=== PATIENT | female | born 1990 | race Caucasian/White ===

== ENCOUNTER → 2016-06-14 20:42 | Outpatient (CLI) | payer SELFPAY ==
[2014-10-26 14:23] VITALS: BMI 32.4
[~2016-06-14 20:42] MED LIST: FERREX 150 PLUS1 CAP; IBUPROFEN600 MG PO; MULTIVIT; PERCOCET 5-3251 TAB PO; PRENATAL COMPLE1 TAB
[2016-06-14 21:35] LABS: APPEARANCE CLEAR (CLEAR); BILIRUBIN NEGATIVE (NEGATIVE); COLOR YELLOW (YELLOW); GLUCOSE NEGATIVE (NEGATIVE); KETONE NEGATIVE (NEGATIVE); LEUKOCYTE ESTERASE NEGATIVE (NEGATIVE); NITRITE NEGATIVE (NEGATIVE); PROTEIN NEGATIVE (NEGATIVE); SPECIFIC GRAVITY 1.015 (1.005-1.020); UROBILINOGEN NORMAL (NORMAL)
[2016-06-14 21:44] LABS: UDS - AMPHET NEGATIVE QUAL (NEGATIVE); UDS - BARB NEGATIVE QUAL (NEGATIVE); UDS - BENZO NEGATIVE QUAL (NEGATIVE); UDS - COCAINE NEGATIVE QUAL (NEGATIVE); UDS - METH NEGATIVE QUAL (NEGATIVE); UDS - OPIATE NEGATIVE QUAL (NEGATIVE); UDS - PCP NEGATIVE QUAL (NEGATIVE); UDS - THC NEGATIVE QUAL (NEGATIVE)
== END | disposition home or self-care (01) ==
LOC: D.ER 20:42 → D.LDO 20:42 → EDSTATUS 20:49
PROVIDERS: Obstetrics & Gynecology
DX: Z34.80 Encounter for supervision of other normal pregnancy, unspecified trimester (principal); R10.30 Lower abdominal pain, unspecified

== ENCOUNTER 2016-08-03 22:25 | Inpatient (IN) | payer MEDICAID ==
[~2016-08-03] VITALS: Ht 160 cm; Wt 72.6 kg
[2016-08-03 23:06] LABS: APPEARANCE CLEAR (CLEAR); BILIRUBIN NEGATIVE (NEGATIVE); COLOR YELLOW (YELLOW); GLUCOSE NEGATIVE (NEGATIVE); KETONE NEGATIVE (NEGATIVE); LEUKOCYTE ESTERASE NEGATIVE (NEGATIVE); NITRITE NEGATIVE (NEGATIVE); PROTEIN NEGATIVE (NEGATIVE); SPECIFIC GRAVITY 1.015 (1.005-1.020); UROBILINOGEN NORMAL (NORMAL)
[2016-08-04 00:56] LABS: UDS - AMPHET NEGATIVE QUAL (NEGATIVE); UDS - BARB NEGATIVE QUAL (NEGATIVE); UDS - BENZO NEGATIVE QUAL (NEGATIVE); UDS - COCAINE NEGATIVE QUAL (NEGATIVE); UDS - METH NEGATIVE QUAL (NEGATIVE); UDS - OPIATE NEGATIVE QUAL (NEGATIVE); UDS - PCP NEGATIVE QUAL (NEGATIVE); UDS - THC NEGATIVE QUAL (NEGATIVE)
[2016-08-04] MEDS ORDERED: PRENATAL COMPLE1 TAB PO (01:02)
[2016-08-04 01:03] VITALS: BP 112/73; Ht 160 cm; Wt 72.6 kg
[2016-08-04 01:08] LABS: HEMATOCRIT 30.5 % (36.0-48.0); HEMOGLOBIN 9.9 g/dL (12-16); MCH 28.6 pg (26.0-34.0); MCHC 32.5 g/dL (31.0-37.0); MCV 88.2 fL (80.0-100.0); MEAN PLATELET VOLUME 11.1 fL (7.4-10.4); RBC 3.46 10x6/uL (4.00-5.40); RDW 13.4 % (11.5-14.5); WBC 6.8 10x3/uL (4.8-10.8)
[2016-08-04 20:06] VITALS: BP 126/70
[2016-08-05 06:41] LABS: HEMATOCRIT 27.8 % (36.0-48.0); HEMOGLOBIN 8.9 g/dL (12-16); MCH 28.6 pg (26.0-34.0); MCV 89.4 fL (80.0-100.0); MEAN PLATELET VOLUME 11.1 fL (7.4-10.4); RBC 3.11 10x6/uL (4.00-5.40); RDW 13.6 % (11.5-14.5); WBC 6.7 10x3/uL (4.8-10.8)
--- NOTE | 2016-08-05 07:21 | OP ---
PATIENT NAME: PENELOPE BARRY MEDICAL RECORD: [id number] :91 LOCATION:[facility] ADMISSION DATE:08/04/16 SURGEON: DANIELLE MONTANA MD DATE OF OPERATION: 08/04/2016 Delivery Note Spontaneous vaginal delivery of male infant weighing 8 pounds 3 ounces, 9 and 9 Apgars, epidural anesthesia. Second-degree midline episiotomy repaired using 2-0 chromic suture. Spontaneous delivery of intact-appearing placenta. ESTIMATED BLOOD LOSS: 400 cc. COMPLICATIONS OF DELIVERY: None. TRANSINT:[id number] Voice Confirmation ID: [id number] DOCUMENT ID: [id number] DANIELLE MONTANA MD at 0721 CC: [id number] DICTATION DATE: 08/04/16 0954 GLASS WOOL BLANKET MACHINE FEEDER: 08/04/16 1054 ADM IN [place] [id number] [place] [address]
[2016-08-05 07:30] VITALS: BP 112/75
[2016-08-05 08:35] LABS: HIV 1 & 2- RAPID SCREEN NEGATIVE (NEGATIVE)
[2016-08-05] MEDS ORDERED: MOTRIN600 MG PO (11:20)
[2016-08-06 12:17] LABS: HEPATITIS C ANTIBODY <0.1 (0.0-0.9)
[2016-08-07 16:13] LABS: HGB SOLUBILITY (SICKLE SCREEN) Negative (Negative)
== END 2016-08-05 13:00 | disposition home or self-care (01) | DRG 775 ==
LOC: D.LDO 22:25 → D.LD 22:25 → D.LDO 08-04 00:33 → D.LD 08-04 00:34
PROVIDERS: ADMIT Obstetrics & Gynecology
PROC: 10E0XZZ Delivery of Products of Conception, External Approach (ICD-10-PCS; principal; 2016-08-04)
PROC: 0W8NXZZ Division of Female Perineum, External Approach (ICD-10-PCS; 2016-08-04)
DX: O80 Encounter for full-term uncomplicated delivery (principal); Z3A.39 39 weeks gestation of pregnancy; Z37.0 Single live birth; Z87.891 Personal history of nicotine dependence

== ENCOUNTER 2017-08-06 17:40 | Outpatient (CLI) | payer MEDICAID ==
[2016-08-04 01:03] VITALS: BMI 28.4
[~2017-08-06 17:40] MED LIST changes: +MOTRIN600 MG PO; +PRENATAL COMPLE1 TAB PO
[2017-08-06 18:12] LABS: APPEARANCE CLEAR (CLEAR); BILIRUBIN NEGATIVE (NEGATIVE); COLOR YELLOW (YELLOW); GLUCOSE NEGATIVE (NEGATIVE); KETONE NEGATIVE (NEGATIVE); NITRITE NEGATIVE (NEGATIVE); PROTEIN NEGATIVE (NEGATIVE); SPECIFIC GRAVITY 1.015 (1.005-1.020); UROBILINOGEN NORMAL (NORMAL)
[2017-08-06 18:26] LABS: UDS - AMPHET NEGATIVE QUAL (NEGATIVE); UDS - BARB NEGATIVE QUAL (NEGATIVE); UDS - BENZO NEGATIVE QUAL (NEGATIVE); UDS - COCAINE NEGATIVE QUAL (NEGATIVE); UDS - OPIATE NEGATIVE QUAL (NEGATIVE); UDS - PCP NEGATIVE QUAL (NEGATIVE); UDS - THC NEGATIVE QUAL (NEGATIVE)
== END 2017-08-06 21:20 | disposition home or self-care (01) ==
LOC: D.LDO 17:40
PROVIDERS: Obstetrics & Gynecology
DX: O26.899 Other specified pregnancy related conditions, unspecified trimester (principal); Z3A.00 Weeks of gestation of pregnancy not specified; M54.5 Low back pain

== ENCOUNTER → 2017-08-09 11:12 | Outpatient (CLI) | payer MEDICAID ==
[2016-08-04 01:03] VITALS: BMI 28.4
== END | disposition home or self-care (01) ==
LOC: D.LDO 11:12
DX: O26.899 Other specified pregnancy related conditions, unspecified trimester (principal); Z3A.00 Weeks of gestation of pregnancy not specified

== ENCOUNTER 2017-08-19 23:45 | Inpatient (IN) | payer MEDICAID ==
[~2017-08-19] VITALS: Ht 160 cm; Wt 83.7 kg
--- NOTE | ~2017-08-19 | OP ---
PATIENT NAME: PENELOPE BARRY MEDICAL RECORD: [id number] :91 LOCATION:[facility] ADMISSION DATE:08/19/17 SURGEON: BRENDON ACEVEDO MD DATE OF OPERATION: 08/20/2017 PREDELIVERY DIAGNOSIS: at 39 weeks' gestation. POSTDELIVERY DIAGNOSIS: at 39 weeks' gestation. PROCEDURE: Induction of labor with vaginal delivery. ATTENDING: Brendon Acevedo MD ANESTHETIC: Continuous lumbar epidural. FINDINGS: Viable male , vertex presentation, ALISON, weight 8 pounds 4 ounces, Apgars 7 and 9, first-degree vaginal laceration, and a perineal body laceration. The mucosal laceration is closed with 4-0 chromic and the perineal laceration is closed with a subcuticular stitch using 3-0 Vicryl. The vaginal mucosal tear is to the right of the urethra and a catheter was passed easily into the urethral meatus and the close terminates 1-1/2 cm lateral to the urethra. Placenta is spontaneous and intact. ESTIMATED BLOOD LOSS: 300 cc. DISPOSITION: Mother and infant recovered in the room. TRANSINT:[id number] Voice Confirmation ID: [id number] DOCUMENT ID: [id number] BRENDON ACEVEDO MD at 1631 CC: [id number] DICTATION DATE: 08/20/17922 HEALTHCARE PROJECT MANAGER: 08/20/17 1130 ADM IN [place] [id number] [place] [address]
--- NOTE | ~2017-08-19 | DS ---
PATIENT:PENELOPE BARRY :91 MEDICAL RECORD: [id number] DISCHARGE SUMMARY ADMISSION DATE: 08/19/17 DISCHARGE DATE: 08/21/17 DATE OF ADMISSION: 08/19/2017 DATE OF DISCHARGE: 08/21/2017 ADMISSION DIAGNOSIS: at term with favorable cervix. DISCHARGE DIAGNOSIS: Mother delivered at term. PROCEDURE: Induction of labor with vaginal delivery. ATTENDING PHYSICIAN: Pilar Mcintosh MD HISTORY OF PRESENT ILLNESS: See the H&P in the chart. SUMMARY OF HOSPITALIZATION: The patient was admitted to the hospital and underwent induction of labor without incident. The patient went into active labor after a single dose of Cytotec. The patient was delivered and has done well . The patient did have perineal body laceration and a vaginal laceration. Sitz baths t.i.d. have been recommended. DISCHARGE MEDICATIONS: Will include ibuprofen. Standard precautions have been reviewed. TRANSINT:[id number] Voice Confirmation ID: [id number] DOCUMENT ID: [id number] PILAR MCINTOSH MD at 0804 CC: [id number] DICTATION DATE: 08/21/17 1630 DORMITORY COUNSELOR: 08/22/17 0326 DIS IN 08/21/17 [facility] [address] [place] [address]
[2017-08-20 00:09] VITALS: BP 117/66; Ht 160 cm; Wt 83.7 kg
[2017-08-20 00:37] LABS: HEMATOCRIT 27.9 % (36.0-48.0); HEMOGLOBIN 9.4 g/dL (12-16); MCH 30.8 pg (26.0-34.0); MCHC 33.7 g/dL (31.0-37.0); MCV 91.5 fL (80.0-100.0); MEAN PLATELET VOLUME 10.6 fL (7.4-10.4); RBC 3.05 10x6/uL (4.00-5.40); RDW 14.1 % (11.5-14.5); WBC 6.8 10x3/uL (4.8-10.8)
[2017-08-20 00:45] LABS: APPEARANCE CLEAR (CLEAR); BILIRUBIN NEGATIVE (NEGATIVE); COLOR YELLOW (YELLOW); GLUCOSE NEGATIVE (NEGATIVE); KETONE NEGATIVE (NEGATIVE); NITRITE NEGATIVE (NEGATIVE); PROTEIN NEGATIVE (NEGATIVE); SPECIFIC GRAVITY 1.015 (1.005-1.020); UROBILINOGEN NORMAL (NORMAL)
[2017-08-20 00:46] LABS: BACTERIA FEW /hpf (NONE SEEN); EPITHELIAL CELLS 0-5 /hpf (0-5); RED CELLS - URINE 0-5 /hpf (0-5)
[2017-08-20 00:58] LABS: UDS - AMPHET NEGATIVE QUAL (NEGATIVE); UDS - BARB NEGATIVE QUAL (NEGATIVE); UDS - BENZO NEGATIVE QUAL (NEGATIVE); UDS - COCAINE NEGATIVE QUAL (NEGATIVE); UDS - OPIATE NEGATIVE QUAL (NEGATIVE); UDS - PCP NEGATIVE QUAL (NEGATIVE); UDS - THC NEGATIVE QUAL (NEGATIVE)
[2017-08-20 16:00] VITALS: BP 120/74
[2017-08-20 19:15] VITALS: BP 113/72
[2017-08-21 07:30] LABS: RAPID PLASMA REAGIN Non Reactive (Non Reactive)
[2017-08-21 08:30] VITALS: BP 128/72
== END 2017-08-21 17:15 | disposition home or self-care (01) | DRG 775 ==
LOC: D.LD 23:45
PROVIDERS: Obstetrics & Gynecology
PROC: 10E0XZZ Delivery of Products of Conception, External Approach (ICD-10-PCS; principal; 2017-08-20)
PROC: 0HQ9XZZ Repair Perineum Skin, External Approach (ICD-10-PCS; 2017-08-20)
PROC: 3E033VJ Introduction of Other Hormone into Peripheral Vein, Percutaneous Approach (ICD-10-PCS; 2017-08-20)
DX: O99.344 Other mental disorders complicating childbirth (principal); F41.8 Other specified anxiety disorders; Z3A.39 39 weeks gestation of pregnancy; Z37.0 Single live birth; O70.0 First degree perineal laceration during delivery; O71.82 Other specified trauma to perineum and vulva; Z87.891 Personal history of nicotine dependence

== ENCOUNTER 2018-03-30 10:55 | Day surgery (SDC) | payer MEDICAID ==
[2018-03-27 10:36] LABS: BASOPHILS 0.3 % (0-2); EOSINOPHILS 0 % (0-7); HEMATOCRIT 39.8 % (36.0-48.0); HEMOGLOBIN 13.5 g/dL (12-16); IMMATURE GRANULOCYTES 0.3 % (0-5); LYMPHOCYTES 42.1 % (15-50); MCH 30.8 pg (26.0-34.0); MCHC 33.9 g/dL (31.0-37.0); MCV 90.9 fL (80.0-100.0); MEAN PLATELET VOLUME 9.7 fL (7.4-10.4); MONOCYTES 12.3 % (2-11); PLATELET COUNT 194 10x3/uL (130-400); RBC 4.38 10x6/uL (4.00-5.40); RDW 13.5 % (11.5-14.5); WBC 3.7 10x3/uL (4.8-10.8)
[~2018-03-30] VITALS: Ht 160 cm; Wt 88.5 kg
[2018-03-30 11:31] VITALS: BP 104/67; Ht 160 cm; Wt 88.5 kg
[2018-03-30 11:51] LABS: HCG URINE NEGATIVE (NEGATIVE)
--- NOTE | 2018-03-30 17:44 | NUR ---
CARE ASSUMED FROM SYED CHANG RN
--- NOTE | 2018-03-30 18:51 | NUR ---
DC INSTRUCTIONS GIVEN TO PT/FAMILY. STATE UNDERSTANDING. PT VOIDED. DC'D IV CATH FULLY INTACT.
--- NOTE | 2018-03-30 19:09 | NUR ---
PT LEFT UNIT VIA WC AT 191
--- NOTE | 2018-04-24 07:46 | OP ---
PATIENT NAME: PENELOPE BARRY MEDICAL RECORD: [id number] :91 LOCATION:D[facility] ADMISSION DATE: SURGEON: PILAR MCINTOSH MD DATE OF OPERATION: 03/30/2018 PREOPERATIVE DIAGNOSIS: Undesired fertility. POSTOPERATIVE DIAGNOSIS: Undesired fertility. PROCEDURES: 1. Diagnostic laparoscopy. 2. Laparoscopic tubal occlusion using Falope rings. SURGEON: Pilar Mcintosh MD ANESTHESIOLOGIST: Dr. Contreras. ANESTHETIC: General. FINDINGS: Unremarkable uterus, tubes, and ovaries bilaterally. SPECIMEN REMOVED: None applicable. PATHOLOGY: None applicable. ESTIMATED BLOOD LOSS: Minimal. FLUIDS: 700 cc of lactated Ringer's. URINE OUTPUT: Quantity sufficient urine void prior to the procedure. COMPLICATIONS: None. DRAINS: None. INDICATIONS: The patient is a 27-year-old multiparous female with undesired fertility. Risks, benefits as well as alternatives to tubal ligation have been discussed. The patient understands the risk of failure to be approximately 1 in 100 with an increased chance of an ectopic , which can be a life-threatening condition if not treated properly. The patient understood all risks and benefits and wishes to proceed. DESCRIPTION OF PROCEDURE: After informed consent was assured, the patient was taken to the operating room where anesthetic was obtained. The patient is now prepped and draped in the usual sterile fashion. An incision was made at umbilicus to accommodate a 5-mm trocar, which was inserted without difficulty. Pneumoperitoneum was developed and the patient is in Trendelenburg position. Accessory trocar was now placed 2 fingerbreadths above the midline. Through this 8-mm port, a blunt probe was inserted and the bowel swept free of the pelvis. A Falope ring applicator was now introduced and the left tube was followed to its fimbriated end and then a segment of the isthmic portion of the tube selected and a band applied. Good crease formation with blanching is noted. Attention was now directed to the other tube, to the right tube, where it was followed to its fimbriated end and again the isthmic portion of the tube as an area selected and a band applied. Good crease formation and blanching is OPERATIVE REPORT [id number] PENELOPE BARRY noted. Approximately 4-5 cc of Marcaine without epinephrine was placed over both occlusion sites. Once this has been performed, the pneumoperitoneum was released as accessory trocars were removed. Primary trocars removed after release of maximum pneumoperitoneum. The subcuticular stitch was applied and then Dermabond placed over the incisions. Sponge, lap, needle counts were correct times 2. The patient went to the recovery area in stable condition. TRANSINT:[id number] Voice Confirmation ID: [id number] DOCUMENT ID: [id number] PILAR MCINTOSH MD at 0746 CC: [id number] DICTATION DATE: 04/23/18 1637 MANAGER EQUITY: 04/23/18 2159 [facility] 03/30/18 [facility] [address] [place] [address]
== END 2018-03-30 19:10 | disposition home or self-care (01) ==
LOC: D.OPS 10:55
PROVIDERS: Obstetrics & Gynecology
DX: Z30.2 Encounter for sterilization (principal)